=== PATIENT | male | born 1990 | race Caucasian/White ===

== ENCOUNTER 2017-10-20 17:27 | Emergency (ER) | payer MEDICAID ==
[2017-10-20] MEDS ORDERED: IPRATROPIUM/ALBUTEROL 3 ML NEB INH STA (17:37)
[2017-10-20] MEDS ORDERED: diphenhydrAMINE INJ 50 MG/ML VIAL IVP STA (17:38)
[2017-10-20] MEDS ORDERED: DEXAMETHASONE 10 MG/ML VIAL IVP STA (17:38)
--- NOTE | 2017-10-20 17:52 | ED Physician Documentation ---
PD HPI DYSPNEA - Stated complaint Stated Complaint: SOA/MED REACTION - Chief complaint Chief Complaint: Allergic Rx - History obtained from History obtained from: Patient - History of Present Illness Timing - onset: How many minutes ago (30), Today Timing - onset during: Rest Timing - details: Abrupt onset, Still present Inciting event(s): Allergic rxn/anaphylaxis (he had been taking Keflex for skin infection for 3-4 days and not improving. Had Sulfa and Naproxen added yesterday , so only 3 tabs so far. Had onset of wheezing, swelling of lips and throat and itching about 30 minutes after taking all the meds.) Associated symptoms: Wheezing. No: Fever, Cough, Diaphoresis Similar symptoms before: Has not had sx before Recently seen: Clinic (yesterday and about 4 days ago; with I&D abscess yesterday and added meds.) Review of Systems Constitutional: denies: Fever Nose: denies: Rhinorrhea / runny nose, Congestion Throat: denies: Sore throat Cardiac: denies: Chest pain / pressure, Palpitations Respiratory: reports: Dyspnea, Wheezing. denies: Cough GI: reports: Nausea. denies: Vomiting, Diarrhea Skin: reports: Rash (has redness with induration and swelling, wick in place, at abscess on back of neck.) PD PAST MEDICAL HISTORY - Past Medical History Cardiovascular: None Respiratory: None Endocrine/Autoimmune: None - Present Medications Home Medications: Ambulatory Orders Medication Instructions Recorded Confirmed Cetirizine [ZyrTEC] 10 mg PO DAILY #15 tablet 10/20/17 Dexamethasone [Decadron] 4 mg PO DAILY #5 tablet 10/20/17 Doxycycline Monohydrate 100 mg PO BID #14 tablet 10/20/17 - Allergies Allergies/Adverse Reactions: Allergies Allergy/AdvReac Type Severity Reaction Status Date / Time ibuprofen Allergy Respiratory Verified 10/20/17 17:52 Penicillins Allergy Rash Verified 10/20/17 17:51 PD ED PE NORMAL - Vitals Vital signs reviewed: Yes - General General: Alert and oriented X 3, Well developed/nourished, Other (he appears uncomfortable with tachypnea, some work of breathing, and anxious. Swelling of lower lip noted. Able to talk. ) - HEENT HEENT: No: Pharynx benign (some uvular edema. ) - Neck Neck: Supple, no meningeal sign, No adenopathy - Cardiac Cardiac: RRR (tachycardic), No murmur - Respiratory Respiratory: No: Clear bilaterally (some diffuse wheezing) - Abdomen Abdomen: Soft, Non tender - Derm Derm: Normal color, Warm and dry, Other (blotchy hives noted on trunk and arms. There is an abscess on back of neck with incision and wick present. ) Results - Vitals Vitals: Oxygen O2 Source Room air PD MEDICAL DECISION MAKING - ED course Complexity details: considered differential (allergic reaction with improvement post meds in ER. Watched for an interval without worsening again. Hard to say which med caused it as both Naproxed and Sulfa were new. Abx are always suspect and he has history of allergy to Ibuprofen. ), d/w patient Departure - Departure Disposition: 01 Home, Self Care Clinical Impression: Allergic reaction to drug Qualifiers: Encounter type: initial encounter Qualified Code(s): T78.40XA - Allergy, unspecified, initial encounter Condition: Stable Record reviewed to determine appropriate education?: Yes Instructions: ED Drug React Allergic Prescriptions: Cetirizine [ZyrTEC] 10 mg PO DAILY #15 tablet Dexamethasone [Decadron] 4 mg PO DAILY #5 tablet Doxycycline Monohydrate 100 mg PO BID #14 tablet Comments: It is hard to tell which medication you were allergic to. Since the cephalexin was not really working for the infection anyway, then you could stop it. The Bactrim antibiotic (sulfamethoxazole) would be suspect as antibiotics are common cause and so I would stop that one. Instead take doxycycline which is also useful against staph infections. You are allergic to ibuprofen so the naproxen might have been the cause as well so I would stop that when to. Use Tylenol or hydrocodone if needed for pains. Follow-up for the abscess as previously directed on your prior visit. For the allergic reaction, continue Decadron which is a steroid daily for 5 more days. Use cetirizine antihistamine daily for another week or so. Add Benadryl every 6 hours if needed for itching or hives. Return if worsened symptoms again but I would expect it to continue tapering down from this point into tomorrow. Discharge Date/Time: 10/20/17 19:34
[2017-10-20 19:22] VITALS: BP 105/59
== END 2017-10-20 19:34 | disposition home or self-care (01) ==
LOC: ED 17:27
DX: L50.0 Allergic urticaria (principal); R06.2 Wheezing; R22.0 Localized swelling, mass and lump, head; T50.905A Adverse effect of unspecified drugs, medicaments and biological substances, initial encounter
CPT/HCPCS: 94640; 94664; 96374; 99283; J1200